=== PATIENT | female | born 1960 | race Caucasian/White ===

== ENCOUNTER → 2021-05-11 13:02 | Outpatient (CLI) | payer OTHER, SELFPAY ==
--- NOTE | 2021-05-11 13:11 | MRI_ITS ---
STUDY: MR Spine Lumbar W/O Contrast 05/11/2021 3:01 PM REASON FOR EXAM: Female, 61 years old. LOW BACK PAIN, fall backwards 5 weeks ago TECHNIQUE: MR Spine Lumbar W/O Contrast Standardized fat and water weighted pulse sequences were obtained. COMPARISON: None FINDINGS: Normal lumbar lordosis. There is no substantial scoliosis. Normal conus medullaris that terminates at the L1 L1-2: Loss of intervertebral disc height. There is endplate spondylosis of the vertebral body. Normal central canal and intervertebral neuroforamina. There is bilateral facet arthropathy. L2-3: Loss of intervertebral disc height. There is endplate spondylosis of the vertebral body. Normal central canal and intervertebral neuroforamina. There is bilateral facet arthropathy. L3-4: Loss of intervertebral disc height. There is endplate spondylosis of the vertebral body. Normal central canal and intervertebral neuroforamina. There is bilateral facet arthropathy. L4-5: Loss of intervertebral disc height. There is endplate spondylosis of the vertebral body. Normal central canal and intervertebral neuroforamina. There is bilateral facet arthropathy. L5-S1: Loss of intervertebral disc height. There is endplate spondylosis of the vertebral body. There is bilateral facet arthropathy. Normal central canal and intervertebral neuroforamina. Normal visualized sacral ala. Normal visualized paraspinous soft tissue structures. MRI/Spine Lumbar (Routine) IMPRESSION: Multilevel degenerative changes, as described above. Electronically Signed: Giovany Yu MD at 15:03 EST , Service support ,
== END ==
PROVIDERS: PCP Family Medicine; Visit Provider Chiropractor
DX: M54.51 Vertebrogenic low back pain (principal)
CPT/HCPCS: 72148

== ENCOUNTER 2021-05-19 05:23 | Day surgery (SDC) | payer OTHER, SELFPAY ==
[2021-05-19 05:53] VITALS: BP 119/71; PULSE 71; RESP 18; TEMP 36.6; O2SAT 100; BMI 18.3
[2021-05-19] MEDS: Lactated Ringers 1,000 ML 15 ML IV (06:04)
--- NOTE | 2021-05-19 06:30 | IMM_PTH ---
PATIENT: ARIC BRAXTON LOC: EN U#:[id number] AGE/SX: 61/F ROOM: RE05/19/[address]: Dr. Jorge Rowland DO : 1960 BED: DIS: 05/19/2021 SPEC #: [id number] RECD: 05/19/21 12:44 STATUS: RACHELLE REQ #: [id number] MATT: 05/19/21 06:[address]: Jorge Rowland DEPT: IMMUNOHISTOCHEMISTRY RECD BY: Brooke Pardo ENTERED: 05/19/21 12:44 SP TYPE: IMMUNO OTHR DR: Dr. Nathanael Arriaga MD Tissues: C - Stomach, NOS Procedures: H Pylori (initial) PHYSICIAN & INSTITUTION [place] [id number] SPECIMEN INFORMATION: Tissue Source: C ? Antrum biopsy Clinical Info: GERD, bacterial overgrowth syndrome, irritable bowel syndrome with diarrhea Specimen Number: [id number] CPT code: 45252 METHODOLOGY: Deparaffinized sections of prefer/formalin-fixed tissue or PAP/DQ stained slides are incubated with monoclonal/polyclonal antibodies/oligonucleotide probes. Localization is made via biotin free immunoperoxidase method. Appropriate controls are performed and reacted as expected. Results on target cell population are indicated in the following table: RESULTS: ANTIBODY / CLONE RESULT Block C H Pylori (polyclonal) negative These tests were developed and their performance characteristics determined by [facility]. They may not have been cleared or approved by the U.S. Food and Drug Administration. The FDA has determined that such clearance or approval is not necessary. INTERPRETATION: C. Antrum biopsy: Negative for Helicobacter pylori organisms. AM:pedrito 05/20/2021
--- NOTE | 2021-05-19 06:30 | EGD_PTH ---
PATIENT: ARIC BRAXTON LOC: EN U#:[id number] AGE/SX: 61/F ROOM: RE05/19/[address]: Dr. Jorge Rowland DO : 1960 BED: DIS: 05/19/2021 SPEC #: [id number] RECD: 05/19/21 10:58 STATUS: RACHELLE RESugar #: [id number] MATT: 05/19/21 06:[address]: Jorge Rowland DEPT: SURGICAL PATHOLOGY RECD BY: Beth Darden ENTERED: 05/19/21 11:44 SP TYPE: EGD BIOPSY OT DR: Dr. Nathanael Arriaga MD Tissues: A - Duodenum, NOS B - Gastric mucous membrane C - Gastric mucous membrane Procedures: Surgery Specimen Level IV HEADER OPERATION: EGD PRE-OP DIAGNOSIS: GERD, bacterial overgrowth syndrome, irritable bowel syndrome with diarrhea TISSUE SUBMITTED: A ? Duodenal bulb biopsy, B ? Gastric cardia biopsy, C ? Antrum biopsy for H. pylori and pathology MICROSCOPIC DIAGNOSIS A. Duodenum, biopsy: Focal Xavi?s gland hyperplasia. B. Gastric cardia, biopsy: Mild chronic gastritis. C. Gastric antrum, biopsy: Fragments of gastric mucosa with chronic gastritis. Fragment of small bowel mucosa with minimal nonspecific chronic inflammation. See comment. AM:pedrito 05/20/2021 COMMENT C. The results of immunohistochemistry for Helicobacter pylori will be reported separately ([id number]). MICROSCOPIC DESCRIPTION Slides are reviewed. GROSS DESCRIPTION A - Received in fixative is one container labeled with the patient's name and designated duodenal bulb biopsy. The specimen consists of multiple irregular fragments of light leary soft tissue that in aggregate measure 0.8 x 0.8 x 0.1 cm. The specimen is totally submitted in one cassette. B - Received in fixative is one container labeled with the patient's name and designated gastric cardia biopsy. The specimen consists of multiple irregular fragments of light leary soft tissue that in aggregate measure 1 x 0.3 x 0.1 cm. The specimen is totally submitted in one cassette. C - Received in fixative is one container labeled with the patient's name and designated antrum biopsy. The specimen consists of multiple irregular fragments of light leary soft tissue that in aggregate measure 1 x 0.3 x 0.1 cm. The specimen is totally submitted in one cassette. / SJ:rg 05/19/21 TC:3 CPT: 20415 x3
--- NOTE | 2021-05-19 06:32 | PCM.HP.BLA ---
History and Physical Date of Admission: 05/19/21 Medications alprazolam 0.25 mg tablet 0.25 mg PO QHS PRN 05/03/21 [History Confirmed 05/03/21] doxycycline hyclate 100 mg capsule 100 mg PO BID #60 cap 05/03/21 [Rx Confirmed 05/03/21] phenytoin sodium extended 100 mg capsule 100 mg PO BID 05/03/21 [History Confirmed 05/03/21] sertraline 50 mg tablet 50 mg PO DAILY 05/03/21 [History Confirmed 05/03/21] [facility] Medical History (Updated 05/03/21 @ 19:[address] Patel Friend, DO) Arthritis Bacterial overgrowth syndrome Carpal tunnel syndrome GERD (gastroesophageal reflux disease) GERD (gastroesophageal reflux disease) Irritable bowel syndrome with diarrhea Osteopenia Seizures HPI HPI Details: ARIC BRAXTON, is a 61 F who presents to the office today for In October of 2020 She started having mid epigastric pain and abdominal pain, nausea, gas and cramping that presents in a different location each day. Presented to ED who did a CT scan. Identified inflamed colon, ATB prescribed and this was somewhat helpful. Off and on pain symptoms since that time. She has some very soft and mucous-like stools on occasion, normally she was what she considers to be a normal BM. She is waking from sleep each morning not feeling well, she has been getting more sleep the last few weeks. Noted that when she lays on her left side she doesn't feel well. Colonoscopy performed 12/[address] Dev PATTON who did not see anything. Symptoms continued and Dr. Méndez put her on Flagyl. When she eats she gets some bloating but has not identified triggers. She has been doing a gluten free diet but is unable to tell if this is helping. ROS Const Constitutional: Positive for fatigue and headache(s) Eyes Eyes: Positive for irritation ENT ENT: Positive for tinnitus and headache(s) Cardio Cardiology: Positive for shortness of breath Gastro GI: Positive for bloating, change in bowel habits and heartburn Musc Musculoskeletal: Positive for abnormal gait, joint pain, back pain, numbness, tingling, Arthritis, sciatica and leg pain at night Neuro Neurology: Positive for abnormal gait, headache(s), numbness and tingling Psych Psychiatric: Positive for anxiety and Positive for depression Endo Endocrine: Positive for increased thirst/drinking and increased hunger Exam Const General: cooperative and comfortable Nutritional Appearance: average body habitus and well nourished HENMT Head: normal to inspection Ears: hearing grossly normal bilaterally Nose: external nose normal Face and sinus: normal facial exam Mouth: oral mucosae normal Throat: posterior oropharynx normal Eyes General: appearance normal, both eyes and all related structures Neck Neck: normal visual inspection Chest Chest palpation & inspection: normal inspection of the chest and normal palpation of entire chest wall Resp Effort & Inspection: normal respiratory effort Auscultation: Bilateral: Clear to Auscultation Cardio Palpation: normal PMI Rate: regular rate Rhythm: regular rhythm GI Inspection: normal to inspection Auscultation: normal bowel sounds Percussion: normal to percussion Palpation: no hepatosplenomegaly Skin General: no rashes or lesions noted Neuro General: patient alert Extrem General: normal to inspection Psych Affect: normal affect Assessment and Plan Assessment and Plan (1) GERD (gastroesophageal reflux disease): Status: Acute Plan - Dr. Jorge Rowland, DO: We will evaluate her upper GI tract to see if there is any anatomic abnormality in her esophagus stomach or duodenum. We will also take biopsies in her esophagus stomach and duodenum. We will see if she has any signs of motility disorder in her upper GI tract and any mucosal abnormalities. (2) Bacterial overgrowth syndrome: Status: Acute Plan - Dr. Jorge Rowland, DO: She will treated with doxycycline for 1 month total. 2 weeks up until we perform endoscopy. We will also possibly need to do cultures in the duodenum and possibly her colon. (3) Irritable bowel syndrome with diarrhea: Status: Acute Plan - Dr. Jorge Rowland, DO: She can have antispasmodic such as hyoscyamine or Bentyl prior to procedure. Plan Details Other Medications: New: doxycycline hyclate 100 mg PO BID 60 caps 0RF I have re-examined the patient. There are no clinical changes since date of exam.
[2021-05-19 06:55] VITALS: BP 117/73; BP 119/71; PULSE 75; RESP 16; TEMP 36.5; O2SAT 97
[2021-05-19 07:00] VITALS: BP 112/66; BP 119/71; PULSE 73; RESP 16; O2SAT 95
[2021-05-19 07:05] VITALS: BP 119/71; BP 119/73; PULSE 70; RESP 16; O2SAT 98
[2021-05-19 07:10] VITALS: BP 119/71; BP 123/76; PULSE 74; RESP 16; TEMP 36.5; O2SAT 96
[2021-05-19 07:18] VITALS: BP 119/71
--- NOTE | 2021-07-07 16:28 | OP.EGD_ITS ---
Patient Name: Samantha Niel Procedure Date: 05/19/2021 6:17 AM Date of : 1960 Age: 61 Procedure: Upper GI endoscopy Indications: Epigastric abdominal pain Providers: Jorge Rowland DO Medicines: See the Anesthesia note for documentation of the administered medications Patient Profile: This is a 61 year old female. Refer to note in patient chart for documentation of history and physical. Patient has symptoms of acute abdominal cramping, acute abdominal distention and acute epigastric abdominal pain. Complications: No immediate complications. Procedure: Pre-Anesthesia Assessment: - Prior to the procedure, a History and Physical was performed, and patient medications and allergies were reviewed. The patient is competent. The risks and benefits of the procedure and the sedation options and risks were discussed with the patient. All questions were answered and informed consent was obtained. Patient identification and proposed procedure were verified by the physician in the pre-procedure area. Mental Status Examination: alert and oriented. Airway Examination: normal oropharyngeal airway and neck mobility. Respiratory Examination: clear to auscultation. CV Examination: normal. Prophylactic Antibiotics: The patient does not require prophylactic antibiotics. Prior Anticoagulants: The patient has taken no previous anticoagulant or antiplatelet agents. ASA Grade Assessment: II - A patient with mild systemic disease. After reviewing the risks and benefits, the patient was deemed in satisfactory condition to undergo the procedure. The anesthesia plan was to use moderate sedation / analgesia (conscious sedation). Immediately prior to administration of medications, the patient was re-assessed for adequacy to receive sedatives. The heart rate, respiratory rate, oxygen saturations, blood pressure, adequacy of pulmonary ventilation, and response to care were monitored throughout the procedure. The physical status of the patient was re-assessed after the procedure. After obtaining informed consent, the endoscope was passed under direct vision. Throughout the procedure, the patient's blood pressure, pulse, and oxygen saturations were monitored continuously. The gastroscope was introduced through the and advanced to the. The gastroscope was introduced through the mouth, and advanced to the second part of duodenum. The upper GI endoscopy was accomplished without difficulty. The patient tolerated the procedure well. Moderate Sedation: Moderate (conscious) sedation was administered by the endoscopy nurse and supervised by the endoscopist. The following parameters were monitored: oxygen saturation, heart rate, blood pressure, and response to care. Total physician intraservice time was 15 minutes. Scope In: 6:39:34 AM Scope Out: 6:50:23 AM Total Procedure Duration Time 0 hours 10 minutes 49 seconds Findings: The examined esophagus was normal. A medium-sized hiatal hernia was present. Patchy moderate inflammation characterized by congestion (edema), erosions, erythema and friability was found in the cardia. Biopsies were taken with a cold forceps for histology. Verification of patient identification for the specimen was done. Estimated blood loss was minimal. Scattered mild inflammation characterized by erythema was found in the gastric antrum. Biopsies were taken with a cold forceps for histology. Verification of patient identification for the specimen was done. Estimated blood loss was minimal. Patchy mild inflammation characterized by congestion (edema) was found in the duodenal bulb. Biopsies were taken with a cold forceps for histology. Verification of patient identification for the specimen was done. Estimated blood loss was minimal. Impression: - Normal esophagus. - Medium-sized hiatal hernia. - Gastritis. Biopsied. - Gastritis. Biopsied. - Duodenitis. Biopsied. Recommendation: - Discharge patient to home. - Resume previous diet. - Continue present medications. - Await pathology results. - Repeat upper endoscopy in 1 year for surveillance. - Return to GI office in 2 weeks. Procedure Code(s): --- Professional --- 23035, Esophagogastroduodenoscopy, flexible, transoral; with biopsy, single or multiple G0500, Moderate sedation services provided by the same physician or other qualified health child care teacher performing a gastrointestinal endoscopic service that sedation supports, requiring the presence of an independent trained observer to assist in the monitoring of the patient's level of consciousness and physiological status; initial 15 minutes of intra-service time; patient age 5 years or older (additional time may be reported with 29690, as appropriate) CPT copyright 2017 [employer]. All rights reserved. The codes documented in this report are preliminary and upon farm demonstrator review may be revised to meet current compliance requirements. Jorge Rowland DO 05/19/2021 7:02:21 AM This report has been signed electronically. Number of Addenda: 1 Note Initiated On: 05/19/2021 6:17 AM Addendum Number: 1 Addendum Date: 03/03/2022 6:25:43 AM MAC was used instead of moderate sedation for this patient. Jorge Rowland DO 03/03/2022 6:25:47 AM This report has been signed electronically.
== END 2021-05-19 07:39 | disposition home or self-care (01) ==
LOC: EN 05:24 → AC 05:25
PROVIDERS: PCP Family Medicine; Referring Provider Family Medicine; Visit Provider Internal Medicine Gastroenterology
DX: K29.50 Unspecified chronic gastritis without bleeding (principal); K44.9 Diaphragmatic hernia without obstruction or gangrene; K29.80 Duodenitis without bleeding; F41.9 Anxiety disorder, unspecified; F32.A Depression, unspecified; K58.9 Irritable bowel syndrome, unspecified; R56.9 Unspecified convulsions; Z79.899 Other long term (current) drug therapy
CPT/HCPCS: 43239; 88305; 88342; J7120; J2405

== ENCOUNTER 2021-10-01 09:04 | Outpatient (CLI) | payer OTHER, SELFPAY ==
[2021-10-01 09:39] LABS: Erythrocyte Sedimentation Rate 5 mm/hr (0-30)
[2021-10-01 10:22] LABS: CRP < 2.90 mg/L (0.0-3.0); LDH 266 U/L (84-246)
[2021-10-03 14:09] LABS: Anti-Centromere B Ab <0.2 AI (0.0-0.9); Anti-Chromatin <0.2 AI (0.0-0.9); Anti-Jo <0.2 AI (0.0-0.9); Anti-Scleroderma-70 AB <0.2 AI (0.0-0.9); RNP Ab 0.3 AI (0.0-0.9); SJOGREN'S Anti-SS-A test 1.3 AI (0.0-0.9); SJOGREN'S Anti-SS-B test 0.4 AI (0.0-0.9); Smith Ab <0.2 AI (0.0-0.9)
[2021-10-03 14:30] LABS: Anti-dsDNA Ab 4 IU/mL (0-9)
[2021-10-11 12:00] LABS: Alpha-1-Globulins 0.3 g/dL (0.0-0.4); Alpha-2-Globulins 0.8 g/dL (0.4-1.0); Cytoplasmic Ab (C-ANCA) <1:20 titer (Neg:<1:20); Endomysial Antibody IgA Negative (Negative); Gamma Globulin 1.1 g/dL (0.4-1.8); Immunoglobulin A 134 mg/dL (87-352); Immunoglobulin E 33 IU/mL (6-495); Immunoglobulin G 1103 mg/dL (586-1602); Immunoglobulin M 141 mg/dL (26-217); PROEL- TOTAL PROTEIN 7.1 g/dL (6.0-8.5)
[2021-10-11 16:50] LABS: Perinuclear Ab (P-ANCA) <1:20 titer (Neg:<1:20); t-Transglutaminase IgA <2 U/mL (0-3)
== END 2021-10-01 23:59 | disposition home or self-care (01) ==
LOC: LAB 09:06
PROVIDERS: PCP Family Medicine; Referring Provider Internal Medicine Gastroenterology; Visit Provider Internal Medicine Gastroenterology
DX: K58.0 Irritable bowel syndrome with diarrhea (principal)
CPT/HCPCS: 36415; 82784; 82785; 83516; 83615; 84165; 85652; 86140; 86225; 86235; 86255; 86256; 86334

== ENCOUNTER 2021-10-13 08:20 | Outpatient (CLI) | payer OTHER, SELFPAY ==
[2021-10-14 21:08] LABS: Giardia Lamblia, Stool EIA Negative (Negative)
[2021-10-15 08:45] LABS: Calprotectin, Stool 37 ug/g (0-120)
== END 2021-10-13 23:59 | disposition home or self-care (01) ==
PROVIDERS: PCP Family Medicine; Referring Provider Internal Medicine Gastroenterology; Visit Provider Internal Medicine Gastroenterology
DX: K58.0 Irritable bowel syndrome with diarrhea (principal); R19.7 Diarrhea, unspecified
CPT/HCPCS: 83630; 83993; 87177; 87209; 87329; 87493; 87506

== ENCOUNTER → 2021-10-21 | Outpatient (CLI) | payer OTHER, SELFPAY ==
--- NOTE | 2021-10-21 09:42 | RAD_ITS ---
INDICATION: hiatal hernia, SOB EXAMINATION/TECHNIQUE: X-RAY - XR Chest 1 View COMPARISON: None. FINDINGS: LINES/DEVICES: None. LUNGS: No consolidation, edema or effusion. No pneumothorax. MEDIASTINUM AND CARDIOVASCULAR STRUCTURES: Cardiac silhouette not enlarged. Central airways and mediastinal contour are unremarkable. BONES AND SOFT TISSUES: Unremarkable. RAD/Chest 1 View IMPRESSION: No radiographic evidence of acute cardiopulmonary disease. Electronically Signed: Grant Walker MD at 13:22 EDT ,
== END | disposition home or self-care (01) ==
LOC: RAD 09:40
PROVIDERS: PCP Family Medicine; Visit Provider Nurse Practitioner Adult Health
DX: K44.9 Diaphragmatic hernia without obstruction or gangrene (principal); R06.02 Shortness of breath
CPT/HCPCS: 71045

== ENCOUNTER → 2022-01-03 | Outpatient (CLI) | payer OTHER, SELFPAY ==
--- NOTE | 2022-01-03 07:18 | US_ITS ---
STUDY: SUPERFICIAL ULTRASOUND - LEFT AXILLARY REGION. REASON FOR EXAM: Female, 61 years old. ENLARGED L.N. -- LEFT AXILLA TECHNIQUE: A superficial ultrasound was performed with real-time and static cordero-scale imaging. COMPARISON: Comparison is made with prior mammogram dated 01/03/2022. FINDINGS: Imaging of the left axillary region was obtained. Multiple small lymph nodes are seen. The largest lymph node measures 1.4 cm x 0.8 cm x 0.6 cm. US/Ext Non Vasc Limited/Soft Tiss IMPRESSION: Multiple right axillary lymph nodes. The largest lymph node measures 1.4 cm x 0.8 cm x 0.6 cm. Electronically Signed: Adam Knight MD at 9:58 EDT ,
--- NOTE | 2022-01-03 07:18 | BI_ITS ---
MAMMOGRAPHY - BILATERAL SCREENING REASON FOR EXAM: Female, 61 years old. Routine annual screening examination. PERTINENT HISTORY: Non-contributory. TECHNIQUE: Digital bilateral breast fuentes (3D mammographic acquisition) in the CC and MLO projections. 2-D mediolateral oblique (MLO) and craniocaudad (CC) views of both breasts were obtained. CAD: Full Field Digital Mammography with Computer Added Detection was performed. COMPARISON: Comparison is made with prior outside examination dated 02/22/2015. FINDINGS: Breast Composition: The breasts are extremely dense, which lowers the sensitivity of mammography. There are no dominant masses or suspicious calcifications. No other significant abnormalities are identified. There has been no significant change since the prior study. BI/SCRN MAMM (CAD)W/FUENTES BILAT IMPRESSION: Stable bilateral screening mammogram. Yearly follow-up mammogram recommended. (A) ASSESSMENT CATEGORY: BIRADS Category 1: Negative. A letter regarding these results will be sent to the patient by the facility within 30 days. Approximately 10% of breast cancers are not detected by mammography. A normal mammogram should not delay biopsy of a clinically suspicious abnormality. [id number] Electronically Signed: Adam Knight MD at 13:52 EDT ,
== END | disposition home or self-care (01) ==
LOC: OPBI 07:16
PROVIDERS: PCP Family Medicine; Visit Provider Internal Medicine Hematology & Oncology
DX: Z12.31 Encounter for screening mammogram for malignant neoplasm of breast (principal)
CPT/HCPCS: 76882; 77063; 77067

== ENCOUNTER 2022-02-24 09:02 | Day surgery (SDC) | payer OTHER, SELFPAY ==
[2022-02-24] VITALS (7 sets, daily range): BP systolic 97–146; BP diastolic 56–75; PULSE 59–68; RESP 16–18; TEMP 36.3–37; O2SAT 96–100; BMI 19.1
--- NOTE | 2022-02-24 | IMM_PTH ---
PATIENT: ARIC BRAXTON LOC: [facility] [place] U#:[id number] AGE/SX: 61/F ROOM: RE02/24/[address]: Dr. James Mohan MD : 1960 BED: DIS: 02/24/2022 SPEC #: [id number] RECD: 02/27/22 11:12 STATUS: RACHELLE REQ #: [id number] MATT: 02/24/22 00:[address]: James Mohan DEPT: IMMUNOHISTOCHEMISTRY RECD BY: Brooke Pardo ENTERED: 02/27/22 11:14 SP TYPE: IMMUNO OTHR DR: Dr. Hiram Callaway MD Tissues: Axillary lymph node, NOS Procedures: BCL-2 (add) BCL-6 (add) CD10 (add) CD20 (add) CD23 (add) CD3 (add) CD43 (add) CD45 (add) CD5 (add) CD79A (add) CK8 (add) CYCLIN (add) KI-67 (add) Pankeratin (initial) PHYSICIAN & [address] [address] SPECIMEN INFORMATION: Tissue Source: Left axillary lymph node Clinical Info: [facility] [place] Specimen Number: [id number] #1 CPT code: 29633, 52312 x13 METHODOLOGY: Deparaffinized sections of prefer/formalin-fixed tissue or PAP/DQ stained slides are incubated with monoclonal/polyclonal antibodies/oligonucleotide probes. Localization is made via biotin free immunoperoxidase method. Appropriate controls are performed and reacted as expected. Results on target cell population are indicated in the following table: RESULTS: ANTIBODY / CLONE RESULT Block 1 AE1-3 (AE1/AE3/PCK26) negative CK8 (19jqfrS60) negative CD3 (PS1) positive CD5 (SP10) positive CD20 (L26) positive CD43 (L60) positive CD45 (RP2/18) positive CD79a (11E3) positive CD10 (56C6) positive, only in germinal center CD23 (1B12) negative BCL-2 (bcl-2/100/D5) negative, in germinal center BCL-6 (TW346T/A8) positive, only in germinal center Cyclin D1/BCL-1 (SP4) negative Ki-67 (30-9) positive, low (high in germinal center) These tests were developed and their performance characteristics determined by [facility]. They may not have been cleared or approved by the U.S. Food and Drug Administration. The FDA has determined that such clearance or approval is not necessary. The above immunohistochemical/dualISH markers are ordered and reviewed by the Pathologist. INTERPRETATION: Left axillary lymph node, excisional biopsy: Negative for involvement by metastatic carcinoma or lymphoma. This case has been reviewed in consultation with Dr. Coronel who concurs with the above diagnosis. SJ:pedrito 02/28/2022
--- NOTE | 2022-02-24 | LYMN_PTH ---
PATIENT: ARIC BRAXTON LOC: [facility] [place] U#:[id number] AGE/SX: 61/F ROOM: RE02/24/[address]: Dr. James Mohan MD : 1960 BED: DIS: 02/24/2022 SPEC #: [id number] RECD: 02/24/22 11:19 STATUS: RACHELLE RESugar #: [id number] MATT: 02/24/22 00:[address]: James Mohan DEPT: SURGICAL PATHOLOGY RECD BY: Guero Redmond ENTERED: 02/24/22 13:24 SP TYPE: LYMPH NODE OTHR DR: Dr. Hiram Callaway MD Tissues: LYMPH NODE BIOPSY Procedures: Special Stain Group II Surgery Specimen Level IV Imprint (control) HEADER OPERATION: Ultrasound-guided wire localization, axillary lymph node PRE-OP DIAGNOSIS: Monoclonal gammopathy of unknown significance TISSUE SUBMITTED: Left axillary lymph node MICROSCOPIC DIAGNOSIS Left axillary lymph node, excisional biopsy: Negative for involvement by metastatic carcinoma or lymphoma. See comment. SJ:rg 03/01/2022 COMMENT The specimen is evaluated at the time of touch imprint by Dr. Plaza. Immediate Evaluation = Numerous lymphocytes are noted. Immunohistochemistry ([id number]) supports the above diagnosis. Flow cytometry study from [employer] shows no evidence of a B-cell or T-cell non-Hodgkin lymphoma. Please see complete report in patient?s EMR. Correlation with clinical, laboratory findings and appropriate follow up are necessary. Case has been reviewed in consultation with Dr. Coronel who concurs with the above diagnosis. IDC:AM MICROSCOPIC DESCRIPTION Slides are reviewed. GROSS DESCRIPTION Received fresh for lymphoma protocol labeled with the patient's name is a specimen designated left axillary lymph node. The specimen consists of two leary-pink nodules with attached adipose tissue measuring 1.5 x 1.5 x 0.5 cm and 1.5 x 1 x 0.5 cm. Both lymph nodes are bisected. Two touch imprints are prepared at the time of core biopsy. A section from the larger lymph node is submitted for flow cytometry study. The entire specimen is submitted in three cassettes as follows: 1 - one bisected lymph node, 2 - one bisected lymph node, 3 - attached adipose tissue. / CRESENCIO:pedrito 02/24/2022 TC:5 CPT: 25493, 88132
[2022-02-24] MEDS: Lactated Ringers 1,000 ML 15 ML IV (09:15)
--- NOTE | 2022-02-24 09:37 | PCM.HP.BLA ---
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 Required: No Is patient in pain?: No Allergies ciprofloxacin [From Cipro] Allergy (Intermediate, Verified 02/03/22 12:58) Unknownclindamycin Allergy (Intermediate, Verified 02/03/22 12:58) CDiffdoxycycline Allergy (Intermediate, Verified 02/03/22 12:58) GI Distress Medications alprazolam 0.25 mg tablet (Xanax) 0.25 mg PO QHS PRN Anxiety 05/03/21 [History Confirmed 02/03/22] phenytoin sodium extended 100 mg capsule (Dilantin Extended) 100 mg PO DAILY 05/03/21 [History Confirmed 02/03/22] ondansetron 4 mg disintegrating tablet 4 mg PO Q8H PRN nausea and vomiting #90 tabs 05/09/21 [Rx Confirmed 02/03/22] hydrocodone-acetaminophen 5-325mg 5mg-325mg 1 tab PO BID PRN Pain 05/18/21 [History Confirmed 02/03/22] orphenadrine citrate 100 mg tablet,extended release 100 mg PO BID PRN Muscle Spasm 05/18/21 [History Confirmed 02/03/22] phenytoin sodium extended 100 mg capsule (Dilantin Extended) 200 mg PO QHS 05/18/21 [History Confirmed 02/03/22] sertraline 50 mg tablet (Zoloft) 100 mg PO DAILY 09/09/21 [History Confirmed 02/03/22] pantoprazole 40 mg tablet,delayed release (Protonix) 40 mg PO DAILY #180 tabs 10/27/21 [Rx Confirmed 02/03/22] hyoscyamine sulfate 0.125 mg tablet 0.125 mg PO BID-QID PRN abdominal cramping #180 tabs 11/25/21 [Rx Confirmed 02/03/22] Is last menstrual period known: No Post menopausal: Yes Patient : No PFSH Medical History?(Updated 02/03/22 @ 12:50 by Monie Thompson) Anemia Anxiety Arthritis Back pain Bacterial overgrowth syndrome Carpal tunnel syndrome Depression GERD (gastroesophageal reflux disease) Hiatal hernia Hx of fracture of arm Irritable bowel syndrome with diarrhea Leukopenia Loss of hearing Non-smoker Osteopenia Seizures Shortness of breath on exertion Syncope Wears glasses Surgical History? History of carpal tunnel surgery of left wrist History of carpal tunnel surgery of right wrist Hx of colonoscopy Family History? Father Hypertension ArthritisMother Osteoporosis High cholesterol Social History? Smoking Status:? Never smoker HPI HPI HPI: ARIC BRAXTON, is a 61 F who presents to the office today for Second opinion regarding potential left axillary lymph node excisional biopsy for monoclonal gammopathy of undetermined significance.? The largest lymph node in the left axilla measures 1.4 x 0.8 x 0.6 cm.? There is concern that she has a possible indolent lymphoproliferative neoplasm.? She was initially referred by Dr. Naya Llamas and I have had an opportunity to discuss this patient's care with him.? Dr. Naya Llamas does not believe that vulvar biopsy will be as definitive for helpful as an excisional biopsy of this lesion.? I have also discussed this patient with pathology Dr. Ricky Plaza who also requests an excisional biopsy over a core biopsy.? The patient has been seen by Dr. Sierra Rubalcava and is received very similar information and recommendations. It is apparent today that the patient is somewhat driving request for diagnosis.? She states that in her discussion with Dr. Naya Llamas that a noninterventional approach could still be taken with incomplete identification of her disease process.? At this time however she is wanting an attempt at obtaining a definitive diagnosis. She has lost about 10 pounds in weight recently but states that she has been suffering from GI problems for which she has been assisted by Dr. Kashif TREJO General General: Yes weight change and fatigue; No appetite, colon cancer, breast cancer or weakness HEENT HEENT: No difficulty swallowing, eye injury, eye surgery, swollen glands or hoarseness Endo Endocrine: No thyroid disease, diabetes mellitus, thyroid cancer, Hair loss, heat intolerance or cold intolerance Skin Skin: No rash or changing moles Breast Breast: No left breast lump, right breast lump, nipple discharge, breast pain, abnormal mammogram, abnormal US or breast enlargement Musc Musculoskeletal: No back problems, arthritis, rheumatoid arthritis, gout or joint pain Cardio Cardiovascular: No murmur, pacemaker, heart disease, atrial fibrillation, high blood pressure, heart attack, heart stent, palpitations, shortness of breat with exertion or chest pain Psych Psychiatric: Yes depression and anxiety; No hearing voices Resp Respiratory: No shortness of breath, No sleep apnea, No cough, No COPD, No asthma, No emphysema and No wheezing Gastro Gastrointestinal: Yes abdominal pain, Yes nausea or vomiting, Yes diarrhea, Yes constipation, No blood in stool, Yes acid reflux, No hemorrhoids, No ulcers, No gallbladder problem and No black,tarry stools Ilia Hematologic: No blood thinners, No blood disorders, No bleeding, No anemia and No blood clots Neuro Neurologic: No system reviewed and no additional complaints, except as documented, No as per HPI, No abnormal gait, No abnormal hearing, No abnormal movements, No abnormal speech, No behavioral changes, No burning sensations, No confusion, Yes convulsions, No disequilibrium, No dizziness, No localized weakness, No frequent falls, No headache(s), No lack of coordination, No loss of vision, No memory loss, Yes numbness, No other visual disturbances, No radicular pain, No restless legs, No sensory deficit, No syncope, Yes tingling, No tremor(s), No weakness and Yes other (seizures/Epilepsy ) Exam Const General: cooperative, healthy appearing, comfortable and no acute distress Nutritional Appearance: underweight Orientation: alert, awake and oriented x3 [facility] Head: normal to inspection Eyes General: appearance normal, both eyes and all related structures Neck Neck: normal visual inspection Chest Chest palpation & inspection: normal inspection of the chest Resp Effort & Inspection: normal respiratory effort Auscultation: clear to auscultation bilaterally Cardio Rate: regular rate Rhythm: regular rhythm GI Palpation: soft and no hepatosplenomegaly Skin General: no rashes or lesions noted Neuro General: patient alert, patient awake and patient oriented x3 Extrem Other: Right axilla normal no particular findings Left axilla shotty adenopathy.? Ultrasound performed demonstrating a 1.3 cm superficial lymph node. Bilateral groins shotty adenopathy bilaterally unremarkable Psych Appearance: grossly normal Assessment and Plan Assessment and Plan (1) MGUS (monoclonal gammopathy of unknown significance): ?Status:?Acute ?Plan: I have an extensive discussion with the patient and .? If the patient is hoping for definitive diagnosis then I propose for her in the operating room and ultrasound-guided wire localization hopefully of a more superficial rather than deep left axillary lymph node with complete excisional biopsy.? I have discussed the technique, benefit, risk, alternatives.? Absolutely no guarantees that this will provide a definitive diagnosis regarding her MGUS has been offered.? We extensively discussed potential risks.? She has had an opportunity to ask and have questions answered.? On my clinical examination I am underwhelmed by the adenopathy of her groins.? The left axillary finding is different from the right and though lengthwise meets criteria I would concur with Dr. Rubalcava that it otherwise on ultrasound appears relatively normal.? The patient and are aware that a needle core biopsy will not offer useful information. She has had an opportunity to ask and have questions answered.? She will consider her options and schedule proceed at her discretion. Copy:Hiram Callaway MD and Dr. Naya Mohan M.D., F.A.C.S I have re-examined the patient. There are no clinical changes since date of exam. James Mohan M.D., F.A.C.S.
--- NOTE | 2022-02-24 10:36 | DCINST_ITS ---
Discharge Instructions Procedure General Surgery Diet Discharge Diet: Light diet - advance as tolerated (if you have questions about your diet instructions, please talk to you doctor.) Activity Discharge Activity: May Not Drive (for 3-5 days or while taking narcotic pain medicine.) May shower in (days): 1 Lifting Restrictions: 10 pounds Dressing / Incision Call your doctor if your incision/area has: Continuous Slow Oozing, Sudden Increased Bleeding, Increased Pain/ Swelling, Increased Redness and Foul Smelling Discharge Call your doctor if you observe: Fever of 101 or Higher Suture Line Care: Avoid Pulling/Pushing and Avoid Pinching/Bending Additional Dressing/Incision Instructions:: Change or remove dressing in 4 days. Leave steri-strips in place for 1 week. Follow Up Care Please Follow Up With: James Mohan MD When: Call [phone] to make an appointment to be seen in about 10 days. Test Results: Test results from this visit will be discussed in further detail at your follow- up appointment, if applicable. Discharge Plan Admission Primary Reason for Your Visit: MGUS Attending Provider: James Mohan Primary Care Provider: Hiram Callaway Discharge Orders/Prescriptions Prescriptions: Continued phenytoin sodium extended [Dilantin Extended] 100 mg capsule 100 mg PO DAILY Label Comments: Take 100mg in the AM and 200mg in the PM alprazolam [Xanax] 0.25 mg tablet 0.25 mg PO QHS PRN (Reason: Anxiety) sertraline [Zoloft] 50 mg tablet 100 mg PO DAILY hydrocodone-acetaminophen 5-325 mg Tablet 1 tab PO BID PRN (Reason: Pain) phenytoin sodium extended [Dilantin Extended] 100 mg Capsule 200 mg PO QHS orphenadrine citrate 100 mg Tablet Extended Release 100 mg PO BID PRN (Reason: Muscle Spasm) ibuprofen 200 mg Capsule 200 mg PO Q6H PRN (Reason: Pain) pantoprazole [Protonix] 40 mg tablet,delayed release (DR/EC) 40 mg PO BID ondansetron 4 mg tablet,disintegrating 4 mg PO Q8H PRN (Reason: nausea and vomiting) Qty: 90 0RF hyoscyamine sulfate 0.125 mg tablet 0.125 mg PO BID-QID PRN (Reason: abdominal cramping) Qty: 180 1RF Referrals / Follow Up: Hiram Callaway MD [Primary Care Provider] - Disposition Disposition (needs filled in before D/C Order can be placed): Home, Self Care
[2022-02-24] MEDS: Bupivacaine 0.25% 30 ML Vial (11:15)
--- NOTE | 2022-02-24 11:24 | PCM.OPRPT ---
Report of Operation Date of Procedure: 02/24/22 Pre-Operative Diagnosis: MGUS Post-Operative Diagnosis: Pathology pending Surgery/Procedure Performed:: Ultrasound-guided wire localization left axillary lymph node with wire localized excisional left axillary lymph node biopsy Description of Surgical Findings:: Timeout informed consent was obtained. 61-year-old female was taken to the operating room placed upon the table underwent general anesthesia the left arm was placed in soft for writing of the table the left axilla was sterilely prepped and draped ultrasound was performed demonstrating the enlarged lymph node that had been demonstrated on the preoperative images. Under ultrasound guidance a Kopan's needle was inserted. I actually ended up using 3 needles and wires to assure that the lymph node was identified. Then a slightly oblique transverse incision was created sharp blunt dissection was used to identify this lymph node and so doing there was a more superficial lymph node that ended up getting excised as well. Tedious sharp and blunt dissection was formed around the lymph node I used hemoclips were needed for hemostasis once I have the lymph nodes dissected free used a hemostat transected the lymph node free and then used a 3-0 Vicryl suture ligature for each of these areas. Hemostasis was nicely intact. The wounds were closed with deep with interrupted 3-0 Vicryl and interrupted 4-0 Monocryl subdermal stitches. The periincisional area was anesthetized with 10 cc of 0.25% Marcaine. Dermabond was applied followed by Telfa and OpSite dressing. Sponge and instrument and needle counts were reported to the surgeon to be correct Specimen left axillary lymph nodes. Drains none. Blood loss minimal. James Mohan M.D., F.A.C.S. Surgeon: James Mohan Type of Anesthesia: General and Local Anesthesiologist: Ziyad Barcenas
== END 2022-02-24 13:50 | disposition home or self-care (01) ==
LOC: SDC 09:05 → AC 09:05
PROVIDERS: PCP Family Medicine; Referring Provider Surgery; Visit Provider Surgery
PROC: 0HBV0ZZ Excision of Bilateral Breast, Open Approach (ICD-10-PCS; CPT 19302; principal; 2022-02-24 11:45)
DX: D47.2 Monoclonal gammopathy (principal); K21.9 Gastro-esophageal reflux disease without esophagitis; F32.A Depression, unspecified; F41.9 Anxiety disorder, unspecified; Z79.899 Other long term (current) drug therapy
CPT/HCPCS: 38525; 01610; 88305; 88313; 88341; 88342; J7120; J2405; Q9968

== ENCOUNTER → 2024-07-18 | Outpatient (CLI) | payer MEDICARE, OTHER, SELFPAY ==
--- NOTE | 2024-07-18 07:45 | BI_ITS ---
MAMMOGRAPHY - BILATERAL SCREENING REASON FOR EXAM: Female, 64 years old. Routine annual screening examination. PERTINENT HISTORY: Non-contributory. TECHNIQUE: Digital bilateral breast fuentes (3D mammographic acquisition) in the CC and MLO projections. 2-D mediolateral oblique (MLO) and craniocaudad (CC) views of both breasts were obtained. CAD: Full Field Digital Mammography with Computer Added Detection was performed. COMPARISON: Comparison is made with prior study dated January 03, 2022. FINDINGS: Breast Composition: The breasts are extremely dense, which lowers the sensitivity of mammography. There are no dominant masses or suspicious calcifications. Surgical clips are seen in the right axillary region. No other significant abnormalities are identified. There has been no significant change since the prior study. BI/SCRN MAMM (CAD)W/FUENTES BILAT IMPRESSION: Stable bilateral screening mammogram. Yearly follow-up mammogram recommended. (A) ASSESSMENT CATEGORY: BIRADS Category 2: Benign. A letter regarding these results will be sent to the patient by the facility within 30 days. Approximately 10% of breast cancers are not detected by mammography. A normal mammogram should not delay biopsy of a clinically suspicious abnormality. [id number] Electronically Signed: Adam Knight MD at 8:26 EST ,
== END | disposition home or self-care (01) ==
LOC: OPBI 07:43
PROVIDERS: PCP Family Medicine; Referring Provider Internal Medicine Hematology & Oncology; Visit Provider Internal Medicine Hematology & Oncology
DX: Z12.31 Encounter for screening mammogram for malignant neoplasm of breast (principal)
CPT/HCPCS: 77063; 77067

== ENCOUNTER → 2025-03-27 | Outpatient (CLI) | payer MEDICARE, OTHER, SELFPAY ==
[2025-03-27 09:08] LABS: Hematocrit 37.8 % (37-47); Hemoglobin 12.1 g/dL (12.0-15.0); Immature Granulocytes Count 0.010 X10^3/uL (0.0-0.0); Mean Corp Hgb Conc 32.0 g/dL (32-36); Mean Corpuscular Volume 87.7 fL (81-99); Mean Platelet Vol. 9.2 fl (6.2-12.0); NRBC Flagged by Analyzer 0 % (0-5); Platelet Count 213 K/mm3 (150-450); RBC Distribution Width CV 14.0 % (11.6-14.6); RBC Distribution Width SD 45.1 fl (35.1-43.9); Red Blood Count 4.31 M/mm3 (4.2-5.4); White Blood Count 2.7 K/mm3 (4.4-11.0)
[2025-03-27 09:41] LABS: AST(SGOT) 27 U/L (<=31); Alanine Aminotransfer ALT/SGPT 15 U/L (<=34); Albumin, Serum 4.3 g/dL (3.4-4.8); Alkaline Phosphatase 79 U/L (35-104); Anion Gap 9 (5-15); BUN 12 mg/dL (4-19); BUN/Creat Ratio 16.5 RATIO (10-20); Calcium,Total 8.8 mg/dL (7.6-11.0); Carbon Dioxide 26.0 mmol/L (21.0-32.0); Chloride 104 mmol/L (98-108); Globulin 2.8 g/dL (2.2-4.2); Glucose 98 mg/dL (70-99); LDH 213 U/L (84-246); Potassium 4.3 mmol/L (3.3-5.1)
[2025-03-31 15:08] LABS: Albumin 3.5 g/dL (2.9-4.4); Gamma Globulin 1.2 g/dL (0.4-1.8); Immunoglobulin A 133 mg/dL (87-352); Immunoglobulin G 1244 mg/dL (586-1602); Immunoglobulin M 147 mg/dL (26-217); PROEL- TOTAL PROTEIN 6.7 g/dL (6.0-8.5)
== END | disposition home or self-care (01) ==
LOC: LAB 08:16
PROVIDERS: PCP Family Medicine; Referring Provider Internal Medicine Hematology & Oncology; Visit Provider Internal Medicine Hematology & Oncology
DX: D47.2 Monoclonal gammopathy (principal)
CPT/HCPCS: 36415; 80053; 82784; 83615; 84165; 85025; 86334